=== PATIENT | female | born 1945 | race Caucasian/White ===

== ENCOUNTER 2023-12-20 12:32 | Outpatient (REF) | payer OTHER, SELFPAY ==
--- NOTE | ~2023-12-20 | XR_ITS ---
EXAMINATION: XR LUMBOSACRAL SPINE WITH OBLIQUES CLINICAL INFORMATION: Radiculopathy. COMPARISON: MR lumbar spine 08/20/2022. TECHNIQUE: AP and lateral views of the lumbar spine with lateral views obtained in a neutral, flexion and extension positioning. FINDINGS: Mild left apical curvature of the lumbar spine. Stable grade 1 anterolisthesis of L4 on L5. No significant change in the alignment on the flexion and extension views. No evidence of acute compression deformity. Severe intervertebral disc height loss with vacuum disc phenomena at L3-L4. Otherwise, moderate intervertebral disc height loss at additional levels. Moderate facet arthropathy from L4 through S1. Small to moderate multilevel anterior osteophytes. Suspect some degree of neural foraminal encroachment from L3 through S1, more noticeable at L5-S1. Right upper quadrant surgical clips. No significant paraspinal soft tissue abnormality. XR/XR lumbar spine 4V min IMPRESSION: 1. No acute compression deformity. 2. Stable grade 1 anterolisthesis of L4 on L5 without evidence of instability on flexion and extension views. 3. Moderate to severe lumbar spondylosis.
== END 2023-12-20 12:33 | disposition home or self-care (01) ==
LOC: HO.HOSX 12:32
PROVIDERS: Referring Provider Physician Assistant Medical; Visit Provider Physician Assistant
DX: M54.16 Radiculopathy, lumbar region (principal); M54.50 Low back pain, unspecified
CPT/HCPCS: 72110

== ENCOUNTER 2023-12-20 12:32 | Outpatient (AMB) | payer OTHER, SELFPAY ==
--- NOTE | 2023-12-20 13:05 | A.SPINEOV_ITS ---
Intake Intake Visit Reasons: radiculopathy, lumbar region Assessment & Plan Assessment & Plan (1) Lumbago: Code(s): M54.50 - Low back pain, unspecified Plan Dear SHERRON Gómez, Thank you for referring Maricel to our office today. She is a pleasant 78-year-old female who comes in today with a chief complaint of low back pain & numbness in her bilateral lower extremities, worse on the left. She states that she had spine surgery 7 years ago (L sided L4-[address] Willard) to relieve a left-sided lumbar radiculopathy. She states that after the surgery she lost feeling in her left lateral lower leg, and reports that this feeling never returned. As the years progressed her loss of sensation began to encompass all of her bilateral toes as well. She states that her primary care physician has ruled out peripheral neuropathy, however she states she never had an EMG completed. She describes her low back pain as the worse symptoms she has. She states she feels she is in constant low-grade pain. She reports 100% relief of her symptoms with lying down flat. She states that sitting for prolonged periods of time and prolonged activity exacerbate her pain. She does not report any issues with walking, and states that bending over does not help to alleviate her symptoms. She reports that she is tried several interventions for her low back pain including physical therapy, healthcare network consultant, several cortisone injections, and acupuncture. Of note the patient is still extremely active, engaging in weekly line dancing, completing weight-bearing exercise regularly, and achieving all of her ADLs. PMH: History of L4-5 left-sided microdiskectomy. Cataracts, basal cell carcinoma (face), Cholecystectomy, unspecified lumbar spine microdiskectomy, osteoarthritis, high blood pressure, asthma, HSV, depression, anxiety, osteoporosis, asthma, fibromyalgia. Social hx: Patient does not smoke, reports no substance use. She does have 3-4 drinks per week. Medications: Duloxetine, lorazepam, Lyrica, Hydroquinone, valacyclovir, metronidazole, betamethasone, albuterol, alendronate, losartan. Allergies: Sulfa, oxycodone. Physical exam: The patient has 5/5 strength in her upper and lower extremities. She has some sensational deficits which she describes as numbness over the lateral aspect of her left lower leg beginning several inches below her knee and extending all the way down her lateral foot on the left side. She also reports no feeling in her bilateral toes. The rest of her sensation is intact. Her reflexes are 2+ intact. She is able to ambulate well and rises from a seated position without difficulty. (-) Giles's, (-) clonus, (-) straight leg raise bilaterally, (-) Abdias's. Imaging review: MRI of the lumbar spine completed at [facility] shows mild posterior disc bulge at L2-3, L3-4, and L4-5. These disc bulges are only causing what I would describe as mild-moderate central canal stenosis. No significant foraminal stenosis can be observed. There is a grade 1 spondylolisthesis at L4- 5, and evidence of a prior surgery at this level. Impression: Maricel is a pleasant 78-year-old female comes in today with a primary chief complaint of chronic low back pain, and a secondary complaint of longstanding bilateral lower extremity sensational changes. In regards to her low back pain, she does have a grade 1 spondylolisthesis at L4-5, but does not have any significant foraminal stenosis or central canal stenosis, and does not present with a history that is consistent with spinal stenosis. Her disc bulging noted from L2-L5 is not significant/severe enough to warrant a surgical intervention, as there is still good flow of cerebrospinal fluid at this level and there is no significant foraminal stenosis. I recommended that the patient continue to follow-up with [facility] and consider a possible spinal cord stimulator if her pain continues to bother her on a daily basis. I also encouraged her that her functional status is still very good, and she should consider refraining from further interventions until her pain begins to impact her ADLs / regular meaningful activities significantly. Lastly, I would also recommend a nerve conduction study/EMG if she has not had one already, if she continues to voice complaints regarding her lower extremity numbness. *At the end of this visit I had her complete a set of standing lumbar spine x- rays (AP/Lateral/Flexion/Extension) during this visit which did show minor / slight movement of the grade 1 spondylolisthesis at L4-5. I will review this case with Dr. Grier to see if he has any concerns regarding this movement. Thank you for allowing us to care for your patient. The total time spent with this visit with this patient was 60 minutes reviewing history, physical exam, MRI lumbar spine & XR lumbar spine imaging review, and implementation of treatment plan or further diagnostic testing Christopher Grier MD,PhD [facility] Orders: Orders XR lumbar spine 4V min Today M54.16 - Radiculopathy, lumbar region Coding Level of Care Code New Pt Level 5 (34131) Diagnoses Lumbago M54.50
== END 2023-12-20 14:34 | disposition home or self-care (01) ==
PROVIDERS: Referring Provider Physician Assistant Medical; Visit Provider Physician Assistant
DX: M54.50 Low back pain, unspecified (principal)
CPT/HCPCS: 99205

== ENCOUNTER 2024-01-08 10:39 | Outpatient (AMB) | payer OTHER, SELFPAY ==
--- NOTE | 2024-01-08 11:21 | A.SPINEOV_ITS ---
Intake Visit Reasons: discuss sx and meet Intake Note: Ms. Joy is here today to discuss surgical options and meet Dr. Grier. Crop Grain Or Livestock Farm Manager Required: No Allergies Sulfa (Sulfonamide Antibiotics) Allergy (Severe, Verified 01/22/24 10:54) Anaphylaxis oxycodone Allergy (Intermediate, Verified 01/22/24 10:54) Wheezing Assessment & Plan Assessment & Plan (1) Back pain of thoracolumbar region: Code(s): M54.50 - Low back pain, unspecified; M54.6 - Pain in thoracic spine Category: Medical (2) Lumbar radiculopathy: Code(s): M54.16 - Radiculopathy, lumbar region Category: Medical Plan Maricel is a pleasant 78-year-old female who came in today as a follow-up visit to review her current imaging and compare it to her preoperative imaging. She was evaluated by this flex o writer operator alongside Dr. Grier, so he could openly discuss possible surgical interventions with her. We discussed her current symptoms, which remain the same; a left-sided shooting radiculopathy. It seems as though her symptoms are predominantly in a left-sided S1 distribution when we discussed her condition today. Upon review of her imaging it does appear that she has some left-sided S1 nerve impingement that is more chronic in nature and has been present since before her L4-5 laminectomy that was completed by Dr. Lo several years ago. Because this has been somewhat longstanding issue we suggested she has a diagnostic left-sided S1 nerve block completed by our pain management colleagues. She was agreeable to this, and we will be following up with them in regards. I will send out a referral. Total amount of time spent in this visit was 20 minutes in discussion of symptoms, MRI imaging results and subsequent plan of care Christopher Grier MD,PhD [facility] Orders: Referrals Pain Management Referral M54.16 - Radiculopathy, lumbar region Coding Level of Care Code New Pt Level 4 (65498) Diagnoses Back pain of thoracolumbar region M54.50; M54.6 Lumbar radiculopathy M54.16
== END 2024-01-08 12:04 | disposition home or self-care (01) ==
PROVIDERS: Visit Provider Physician Assistant
DX: M54.50 Low back pain, unspecified (principal); M54.6 Pain in thoracic spine; M54.16 Radiculopathy, lumbar region
CPT/HCPCS: 99213

== ENCOUNTER → 2024-01-08 10:39 | Outpatient (BNVA) | payer OTHER, SELFPAY | PROVIDERS: Visit Provider Physician Assistant ==

== ENCOUNTER 2024-01-22 10:44 | Outpatient (AMB) | payer OTHER, SELFPAY ==
--- NOTE | 2024-01-22 10:49 | MHC.OFFVIS ---
Intake Vital Signs 01/22/24 10:51 Height 5 ft 2.75 in Weight 150 lb BMI 26.8 BP 160/82 H Blood Pressure Location Lt brachial Position Sitting Respiration 12 Pulse 84 Pulse Source Pulse Oximeter Pulse Oximetry (%) 98 Oxygen Delivery Method Room Air Intake Visit Reasons: Pain in thoracic spine/low back pain/LVM Allergies Sulfa (Sulfonamide Antibiotics) Allergy (Severe, Verified 01/22/24 10:54) Anaphylaxis oxycodone Allergy (Intermediate, Verified 01/22/24 10:54) Wheezing Medication List - Last Reconciled 01/22/24 by Liz Contreras LPN fexofenadine (Marisol Allergy) 180 mg PO DAILY hydrochlorothiazide 12.5 mg PO DAILY losartan 100 mg PO DAILY HPI Pain in thoracic spine/low back pain/LVM HPI Details 78-year-old female who presents today to the office for an evaluation of pain in the thoracic spine and low back pain. She had a left sided L4-[address] Willard about seven years ago to relieve a left-sided lumbar radiculopathy. The patient reports low back pain and numbness in her bilateral lower extremities, worse on the left side. She also reports occasional radiating pain down to the hip and knee. Her primary care physician referred her for EMG studies at [facility] on 02/11/2024. Her pain alleviates when lying down. She states that sitting for prolonged periods of time and prolonged activity exacerbate her pain. She tried several interventions for her low back pain, including physical therapy, day care attendant, several cortisone injections, and acupuncture. She recently had an MRI scan and an x-ray. [facility] Medical History (Updated 01/28/24 @ 11:40 by Reynaldo Teresa MD) Fibromyalgia Anxiety Depression HSV (herpes simplex virus) infection Asthma High blood pressure Osteoarthritis Basal cell carcinoma Cataract Surgical History (Updated 01/22/24 @ 06:23 by Evon Mejía) Hx of cholecystectomy History of microdiscectomy Review of Systems Const All systems reviewed & are unremarkable except as noted in HPI and below Physical Exam Vital Signs: Last Vital Signs Pulse 84 01/22/24 10:51 Resp 12 01/22/24 10:51 BP 160/82 H 01/22/24 10:51 Pulse Ox 98 01/22/24 10:51 Oxygen Delivery Method Room Air 01/22/24 10:51 BMI result Body Mass Index 26.8 General: Appears afebrile. Alert and oriented. Mood and affect appropriate. Follows and participates in conversation appropriately. Respiratory effort is unlabored. Able to transition from sit to stand unassisted. Ambulates with bilaterally normal heel strike and toe off. Results Reviewed Results Reviewed: 12/20/23: XR LUMBOSACRAL SPINE WITH OBLIQUES FINDINGS: Mild left apical curvature of the lumbar spine. Stable grade 1 anterolisthesis of L4 on L5. No significant change in the alignment on the flexion and extension views. No evidence of acute compression deformity. Severe intervertebral disc height loss with vacuum disc phenomena at L3-L4. Otherwise, moderate intervertebral disc height loss at additional levels. Moderate facet arthropathy from L4 through S1. Small to moderate multilevel anterior osteophytes. Suspect some degree of neural foraminal encroachment from L3 through S1, more noticeable at L5-S1. Right upper quadrant surgical clips. No significant paraspinal soft tissue abnormality. IMPRESSION: 1. No acute compression deformity. 2. Stable grade 1 anterolisthesis of L4 on L5 without evidence of instability on flexion and extension views. 3. Moderate to severe lumbar spondylosis. Review of MRI shows nonspecific scar tissue at the L5-S1 level compressing the S1 nerve root. Assessment & Plan Assessment & Plan (1) Lumbar radiculopathy: Code(s): M54.16 - Radiculopathy, lumbar region (2) Post laminectomy syndrome: Code(s): M96.1 - Postlaminectomy syndrome, not elsewhere classified Plan Discussed diagnostic injections vs. spinal cord stimulation as possible treatment options. We will schedule her for a Left L5-S1 selective nerve root block at the site of the epidural scar tissue compressing on her left S1 nerve root. She has an EMG study on the , so we will tentatively plan for the week after that. Discussed the risks and benefits of the procedure with the patient in detail. All questions were answered. The patient is on board with the plan. Justification for interventional therapy: ? Patient with average pain > 6/10 ? Patient has exhausted conservative therapy ? Patient unable to tolerate physical therapy due to pain Scribed for Dr. Teresa by Rashel Lugo, medical office rep, on 01/22/2024. I, Dr. Teresa, have personally reviewed and agree with the information entered by the scribe. Coding Level of Care Code New Pt Level 4 (70545) Diagnoses Lumbar radiculopathy M54.16 Post laminectomy syndrome M96.1
[2024-01-22 10:51] VITALS: BP 160/82; PULSE 84; RESP 12; O2SAT 98; BMI 26.8
== END 2024-01-22 11:30 | disposition home or self-care (01) ==
LOC: HO.PMC 10:44
PROVIDERS: PCP Internal Medicine; Visit Provider Internal Medicine
DX: M54.16 Radiculopathy, lumbar region (principal); M96.1 Postlaminectomy syndrome, not elsewhere classified
CPT/HCPCS: 99204

== ENCOUNTER → 2024-01-22 10:44 | Outpatient (BNVA) | payer OTHER, SELFPAY | PROVIDERS: PCP Internal Medicine; Visit Provider Internal Medicine ==

== ENCOUNTER 2024-05-14 06:13 | Outpatient (REF) | payer OTHER, SELFPAY ==
--- NOTE | ~2024-05-14 | FL_ITS ---
EXAMINATION: XR FLUOROSCOPY WITH IMAGES CLINICAL INFORMATION: L5-S1 nerve block. COMPARISON: None available. TECHNIQUE: Fluoroscopy Supervised By: Dr. Teresa. Fluoroscopy Time: 0.2 min. Cumulative Dose: 5.45 mGy. DAP: 0.396 Gycm2. Images: 3. FINDINGS: Intraoperative fluoroscopy and spot films were performed during a procedure in the OR. A needle is seen at the L5-S1 level on the left with contrast around the tip. Contrast appears to be in the epidural space. Please correlate with Dr. Teresa' report for complete details. FL/FL guidance in treatment room IMPRESSION: Intraoperative fluoroscopy and spot films were obtained. Please see Dr. Teresa' report for complete details.
== END 2024-05-14 06:14 | disposition home or self-care (01) ==
LOC: CF 06:13
PROVIDERS: Visit Provider Internal Medicine
DX: M54.16 Radiculopathy, lumbar region (principal)
CPT/HCPCS: 64483; Q9967

== ENCOUNTER 2024-05-14 11:14 | Outpatient (AMB) | payer OTHER, SELFPAY ==
--- NOTE | 2024-05-14 11:19 | MHC.OFFVIS ---
Vital Signs 05/14/24 12:43 05/14/24 12:44 BP 170/83 H 160/92 H Blood Pressure Location Rt brachial Rt brachial Position Sitting Sitting Respiration 14 14 Pulse 85 84 Pulse Source Pulse Oximeter Pulse Oximeter Pulse Oximetry (%) 98 97 Oxygen Delivery Method Room Air Room Air Intake Visit Reasons: Left L5-S1 selective nerve root block Allergies Sulfa (Sulfonamide Antibiotics) Allergy (Severe, Verified 01/22/24 10:54) Anaphylaxis oxycodone Allergy (Intermediate, Verified 01/22/24 10:54) Wheezing HPI HPI Left L5-S1 selective nerve root block: Details: Patient presents for scheduled procedure. Denies any recent cough, cold, infection, fever or other significant changes in medical history since last office visit. [facility] Medical History (Updated 01/28/24 @ 11:40 by Reynaldo Teresa MD) Fibromyalgia Anxiety Depression HSV (herpes simplex virus) infection Asthma High blood pressure Osteoarthritis Basal cell carcinoma Cataract Surgical History (Updated 01/22/24 @ 06:23 by Evon Mejía) Hx of cholecystectomy History of microdiscectomy Physical Exam Vital Signs: Last Vital Signs Pulse 84 05/14/24 12:44 Resp 14 05/14/24 12:44 BP 160/92 H 05/14/24 12:44 Pulse Ox 97 05/14/24 12:44 Oxygen Delivery Method Room Air 05/14/24 12:44 Office Procedures Details: Selective nerve root block, Left L5 After obtaining written consent, pre-procedure blood pressure and heart rate were stable and recorded in the nursing record. The patient was placed in the prone position on the fluoroscopy table. The lumbosacral area was prepped with chloraprep, allowed to dry and draped in sterile fashion. Using fluoroscopy, the skin overlying our target was anesthetized with 0.5% lidocaine. A 22 gauge 3.5 inch spinal needle was advanced to the safe triangle in the upper pole of the left L5 foramen. No paresthesias were elicited with needle placement and aspiration was negative for blood and CSF. Correct needle position was confirmed with approximately 1 ml contrast dye (Omnipaque 180 mg/ml) injected under real-time fluoroscopy. No evidence of vascular or intrathecal uptake was seen and there was both epidural and peripheral spread of the contrast agent. 1 ml containing 1.5% lidocaine was slowly injected. The needle was flushed and removed. The skin was cleansed and a sterile bandages were applied. The patient tolerated the procedure well and no complications were encountered. Following the procedure the patient's vital signs were stable. The patient was discharged home in good condition with post-procedural instructions. Time Out: Immediately prior to the procedure, the following was verbally confirmed that there is a signed consent form and that the correct patient, planned procedure, site and side are consistent with documentation and that necessary equipment and/or blood products are available prior to the start of the case. Complications: none EBL: <5 cc 41736 - Lumbar/Sacral Procedure code (CPT) selection complete Assessment & Plan Assessment & Plan (1) Lumbar radiculopathy: Code(s): M54.16 - Radiculopathy, lumbar region Category: Medical Plan Patient is status post diagnostic left L5-S1 selective nerve root block. Patient tolerated procedure well and was discharged home in stable condition with discharge instructions. All questions were answered. We will follow-up via telephone or in clinic to assess response to therapy. A follow-up appointment was made during today's visit. Coding Level of Care Code Procedure Only Diagnoses Lumbar radiculopathy M54.16 CPT Codes Transforaminal Epidural Steroid Inj - TESI 3: 01476 - Lumbar/Sacral ([id number])
[2024-05-14 12:43] VITALS: BP 170/83; PULSE 85; RESP 14; O2SAT 98
[2024-05-14 12:44] VITALS: BP 160/92; PULSE 84; RESP 14; O2SAT 97
== END 2024-05-14 12:00 | disposition home or self-care (01) ==
LOC: HO.PMCPRC 11:14
PROVIDERS: PCP Internal Medicine; Visit Provider Internal Medicine
DX: M54.16 Radiculopathy, lumbar region (principal)
CPT/HCPCS: 64483

== ENCOUNTER 2024-05-20 10:25 | Outpatient (AMB) | payer OTHER, SELFPAY ==
--- NOTE | 2024-05-20 10:41 | MHC.OFFVIS ---
Vital Signs 05/20/24 10:49 Height 5 ft 2.75 in BP 143/86 H Blood Pressure Location Lt brachial Position Sitting Respiration 14 Pulse 120 H Pulse Source Pulse Oximeter Pulse Oximetry (%) 96 Oxygen Delivery Method Room Air Intake Visit Reasons: s/p left L5-S1 SNRB Allergies Sulfa (Sulfonamide Antibiotics) Allergy (Severe, Verified 05/20/24 10:49) Anaphylaxis oxycodone Allergy (Intermediate, Verified 05/20/24 10:49) Wheezing Medication List - Last Reconciled 05/20/24 by Liz Contreras LPN fexofenadine (Marisol Allergy) 180 mg PO DAILY hydrochlorothiazide 12.5 mg PO DAILY losartan 100 mg PO DAILY HPI HPI s/p left L5-S1 SNRB: Details: 78-year-old female who presents to the office for status post left L5-S1 selective nerve root block injection. The patient reports no significant relief following the procedure. She states she still has some pain and stiffness in the back. The pain radiates down to the leg at times when she walks. She reports it hurt a lot yesterday and the day before. She did massaging to help relieve the pain and stiffness. Past procedures: 05/14/24: Left L5 selective nerve root block: no relief [facility] Medical History (Updated 05/20/24 @ 11:36 by Reynaldo Teresa MD) Fibromyalgia Anxiety Depression HSV (herpes simplex virus) infection Asthma High blood pressure Osteoarthritis Basal cell carcinoma Cataract Surgical History (Updated 01/22/24 @ 06:23 by Evon Mejía) Hx of cholecystectomy History of microdiscectomy Review of Systems Const All systems reviewed & are unremarkable except as noted in HPI and below Physical Exam Vital Signs: Last Vital Signs Pulse 120 H 05/20/24 10:49 Resp 14 05/20/24 10:49 BP 143/86 H 05/20/24 10:49 Pulse Ox 96 05/20/24 10:49 Oxygen Delivery Method Room Air 05/20/24 10:49 General: Appears afebrile. Alert and oriented. Mood and affect appropriate. Follows and participates in conversation appropriately. Respiratory effort is unlabored. Able to transition from sit to stand unassisted. Results Reviewed Results Reviewed: No imaging is available for review Assessment & Plan Assessment & Plan (1) Post laminectomy syndrome: Code(s): M96.1 - Postlaminectomy syndrome, not elsewhere classified Category: Medical (2) Left sacral radiculopathy: Code(s): M54.18 - Radiculopathy, sacral and sacrococcygeal region Category: Medical Plan We will schedule for a left diagnostic S1 nerve root block next. We will assess response to the S1 nerve root block and see if that provides us with a surgical target. In case of no response to both L5 and S1 diagnostic nerve root blocks, we might have to consider neuromodulation instead of surgical intervention. Discussed the risks and benefits of the procedure with the patient in detail. All questions were answered. The patient is on board with the plan. Scribed for Dr. Teresa by Evon Mejía medical officer psychiatry, on 05/20/2024. I, Dr. Teresa, have personally reviewed and agree with the information entered by the scribe. Coding Level of Care Code Est Pt Level 3 (90055) Diagnoses Post laminectomy syndrome M96.1 Left sacral radiculopathy M54.18
[2024-05-20 10:49] VITALS: BP 143/86; PULSE 120; RESP 14; O2SAT 96
== END 2024-05-20 11:02 | disposition home or self-care (01) ==
PROVIDERS: PCP Internal Medicine; Visit Provider Internal Medicine
DX: M96.1 Postlaminectomy syndrome, not elsewhere classified (principal); M54.18 Radiculopathy, sacral and sacrococcygeal region
CPT/HCPCS: 99213

== ENCOUNTER → 2024-05-20 10:25 | Outpatient (BNVA) | payer OTHER, SELFPAY | PROVIDERS: PCP Internal Medicine; Visit Provider Internal Medicine ==

== ENCOUNTER 2024-06-04 06:24 | Outpatient (REF) | payer OTHER, SELFPAY ==
--- NOTE | ~2024-06-04 | FL_ITS ---
EXAMINATION: XR FLUOROSCOPY WITH IMAGES CLINICAL INFORMATION: Lumbar radiculopathy. COMPARISON: None available. TECHNIQUE: Fluoroscopy Supervised By: Dr. Teresa. Fluoroscopy Time: 0.2 min. Cumulative Dose: 3.58 mGy. DAP: 0.0270 Gycm2. Images: 4. FINDINGS: Intraoperative fluoroscopy and spot films were performed during a procedure in the OR. Epidural needles appear to be present at the S1 and L5 levels. Please correlate with Dr. Teresa' report for complete details. FL/FL guidance in treatment room IMPRESSION: Intraoperative fluoroscopy and spot films were obtained. Please see Dr. Teresa' report for complete details.
== END 2024-06-04 06:25 | disposition home or self-care (01) ==
LOC: CF 06:24
PROVIDERS: Visit Provider Internal Medicine
DX: M54.16 Radiculopathy, lumbar region (principal); M54.18 Radiculopathy, sacral and sacrococcygeal region
CPT/HCPCS: 64483; J2795; Q9967

== ENCOUNTER 2024-06-04 12:53 | Outpatient (AMB) | payer OTHER, SELFPAY ==
[2024-06-04 12:59] VITALS: BP 165/76; PULSE 79; RESP 16; O2SAT 98; BMI 26.8
--- NOTE | 2024-06-04 12:59 | A.OFFVIS_ITS ---
Vital Signs 06/04/24 12:59 06/04/24 13:46 Height 5 ft 2.75 in Weight 150 lb BMI 26.8 BP 165/76 H 161/82 H Blood Pressure Location Rt brachial Lt brachial Position Sitting Sitting Respiration 16 16 Pulse 79 80 Pulse Source Pulse Oximeter Pulse Oximeter Pulse Oximetry (%) 98 98 Oxygen Delivery Method Room Air Room Air Comment Pre-Op Post-op Intake Visit Reasons: Left Dx S1 selective nerve RB Allergies Sulfa (Sulfonamide Antibiotics) Allergy (Severe, Verified 06/04/24 13:00) Anaphylaxis oxycodone Allergy (Intermediate, Verified 06/04/24 13:00) Wheezing HPI HPI Left Dx S1 selective nerve RB: Details: Patient presents for scheduled procedure. Denies any recent cough, cold, infection, fever or other significant changes in medical history since last office visit. [facility] Medical History (Updated 05/20/24 @ 11:36 by Reynaldo Teresa MD) Fibromyalgia Anxiety Depression HSV (herpes simplex virus) infection Asthma High blood pressure Osteoarthritis Basal cell carcinoma Cataract Surgical History (Updated 01/22/24 @ 06:23 by Evon Mejía) Hx of cholecystectomy History of microdiscectomy Physical Exam Vital Signs: Last Vital Signs Pulse 80 06/04/24 13:46 Resp 16 06/04/24 13:46 BP 161/82 H 06/04/24 13:46 Pulse Ox 98 06/04/24 13:46 Oxygen Delivery Method Room Air 06/04/24 13:46 BMI result Body Mass Index 26.8 Office Procedures Details: Diagnostic selective nerve root block, left S1 After obtaining written consent, pre-procedure blood pressure and heart rate were stable and recorded in the nursing record. The patient was placed in the prone position on the fluoroscopy table. The lumbosacral area was prepped with chloraprep, allowed to dry and draped in sterile fashion. Using fluoroscopy, the skin overlying our target was anesthetized with 0.5% lidocaine. A 22 gauge 3.5 inch spinal needle was advanced through the S1 foramen. No paresthesias were elicited with needle placement and aspiration was negative for blood and CSF. Correct needle position was confirmed with approximately 1 ml contrast dye (Omnipaque 180 mg/ml) injected under real- time fluoroscopy. No evidence of vascular or intrathecal uptake was seen and there was both epidural and peripheral spread of the contrast agent. 1 ml containing 0.5% lidocaine and 0.5% ropivacaine equal mix was slowly injected. The needle was removed. The skin was cleansed and a sterile bandages were applied. The patient tolerated the procedure well and no complications were encountered. Following the procedure the patient's vital signs were stable. The patient was discharged home in good condition with post-procedural instructions. Time Out: Immediately prior to the procedure, the following was verbally confirmed that there is a signed consent form and that the correct patient, planned procedure, site and side are consistent with documentation and that necessary equipment and/or blood products are available prior to the start of the case. Complications: none EBL: <5 cc 98206 - Lumbar/Sacral Procedure code (CPT) selection complete Assessment & Plan Assessment & Plan (1) Left sacral radiculopathy: Code(s): M54.18 - Radiculopathy, sacral and sacrococcygeal region Category: Medical Plan Patient is status post diagnostic left S1 nerve root block. Patient tolerated procedure well and was discharged home in stable condition with discharge instructions. All questions were answered. We will follow-up via telephone or in clinic to assess response to therapy. A follow-up appointment was made during today's visit. Orders: Orders FL guidance in treatment room Today M54.16 - Radiculopathy, lumbar region Coding Level of Care Code Procedure Only Diagnoses Left sacral radiculopathy M54.18 CPT Codes Transforaminal Epidural Steroid Inj - TESI 3: 11729 - Lumbar/Sacral ([id number])
[2024-06-04 13:46] VITALS: BP 161/82; PULSE 80; RESP 16; O2SAT 98
== END 2024-06-04 13:47 | disposition home or self-care (01) ==
LOC: HO.PMCPRC 12:53
PROVIDERS: PCP Internal Medicine; Visit Provider Internal Medicine
DX: M54.18 Radiculopathy, sacral and sacrococcygeal region (principal)
CPT/HCPCS: 64483

== ENCOUNTER 2024-06-11 10:46 | Outpatient (AMB) | payer OTHER, SELFPAY ==
--- NOTE | 2024-06-11 10:49 | MHC.OFFVIS ---
Vital Signs 06/11/24 10:50 Height 5 ft 3 in Weight 151 lb BMI 26.7 BP 141/65 H Blood Pressure Location Lt brachial Position Sitting Pulse 89 Pulse Source Pulse Oximeter Pulse Oximetry (%) 95 Oxygen Delivery Method Room Air Intake Visit Reasons: s/p Left S1 Dx SNRB Allergies Sulfa (Sulfonamide Antibiotics) Allergy (Severe, Verified 06/11/24 10:52) Anaphylaxis oxycodone Allergy (Intermediate, Verified 06/11/24 10:52) Wheezing Medication List - Last Reconciled 06/11/24 by Keisha Wick fexofenadine (Marisol Allergy) 180 mg PO DAILY hydrochlorothiazide 12.5 mg PO DAILY losartan 100 mg PO DAILY valacyclovir mg PO HPI HPI s/p Left S1 Dx SNRB: Details: Maricel presents for follow-up after diagnostic left selective S1 nerve root block. She reports numbness the 1st day after the injection and then relief of pain for 1 day before her symptoms returned. This was different from the L5 selective nerve root block that we did which did not have any effect on her symptoms. She is interested in discussing available treatment options for her symptoms. [facility] Medical History (Updated 05/20/24 @ 11:36 by Reynaldo Teresa MD) Fibromyalgia Anxiety Depression HSV (herpes simplex virus) infection Asthma High blood pressure Osteoarthritis Basal cell carcinoma Cataract Surgical History (Updated 01/22/24 @ 06:23 by Evon Mejía) Hx of cholecystectomy History of microdiscectomy Physical Exam Vital Signs: Last Vital Signs Pulse 89 06/11/24 10:50 BP 141/65 H 06/11/24 10:50 Pulse Ox 95 06/11/24 10:50 Oxygen Delivery Method Room Air 06/11/24 10:50 BMI result Body Mass Index 26.7 On exam today: Appears afebrile. Alert and oriented. Mood and affect appropriate. Follows and participates in conversation appropriately. Respiratory effort is unlabored. Able to transition from sit to stand unassisted. Ambulates with bilaterally normal heel strike and toe off. Able to stand and walk on toes and heels. Assessment & Plan Assessment & Plan (1) Post laminectomy syndrome: Code(s): M96.1 - Postlaminectomy syndrome, not elsewhere classified Category: Medical (2) Left sacral radiculopathy: Code(s): M54.18 - Radiculopathy, sacral and sacrococcygeal region Category: Medical Plan Maricel had a positive diagnostic response to a diagnostic left S1 selective nerve root block. I discussed both neuromodulation as well as surgical treatment options available to her for this issue. She is hesitant to go for surgery right away. We discussed spinal cord stimulation as a potential 1st step to see if that might resolve her symptoms. If an SCS trial is not helpful, we can consider revisiting surgical excision of the potential scar tissue at her S1 nerve root with Dr. Grier. If that is not helpful, we can consider a S1 DRG stimulator placement. I discussed the risks and potential benefits of all these different modalities. She is interested in pursuing an SCS trial to begin with. I will send her for psychology clearance through [employer] and see her back for a trial with a [employer] device once she is cleared. Coding Level of Care Code Est Pt Level 3 (80457) Diagnoses Post laminectomy syndrome M96.1 Left sacral radiculopathy M54.18
[2024-06-11 10:50] VITALS: BP 141/65; PULSE 89; O2SAT 95; BMI 26.7
== END 2024-06-11 11:50 | disposition home or self-care (01) ==
PROVIDERS: PCP Internal Medicine; Visit Provider Internal Medicine
DX: M96.1 Postlaminectomy syndrome, not elsewhere classified (principal); M54.18 Radiculopathy, sacral and sacrococcygeal region
CPT/HCPCS: 99213

== ENCOUNTER → 2024-06-11 10:46 | Outpatient (BNVA) | payer OTHER, SELFPAY | PROVIDERS: PCP Internal Medicine; Visit Provider Internal Medicine ==

== ENCOUNTER 2024-06-29 10:16 | Outpatient (AMB) | payer OTHER, SELFPAY ==
--- NOTE | 2024-06-29 10:22 | HO.SPINEOV ---
Intake Visit Reasons: Follow up after pain management Intake Note: Ms. Joy is here today to F/u after pain management. 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 She initially had a left-sided L5 diagnostic nerve block completed which provided no pain relief per the patient's report. After this, she had a left-sided S1 diagnostic nerve block completed, which provided 75% relief for about half a day. She reports that the pressure/numbness in her left leg/thigh was not relieved at all. She reports she also discussed the possibility of a spinal cord stimulator with our pain management colleagues, but does not feel as though she would like to pursue this option at this time. I am not entirely convinced that Maricel is a good candidate for a left-sided S1 foraminotomy, which is the type of procedure that Dr. Grier typically would offer someone with an imaging/history similar to Maricel. Nevertheless, I will discuss her experience with pain management in the possibility for the surgery with Dr. Grier. I will reach back out to the patient after. Christopher Grier MD,PhD [facility] Coding Level of Care Code Global (59632) Diagnoses Lumbar radiculopathy M54.16
== END 2024-06-29 11:50 | disposition home or self-care (01) ==
PROVIDERS: PCP Internal Medicine; Visit Provider Physician Assistant
DX: M54.16 Radiculopathy, lumbar region (principal)
CPT/HCPCS: 99213

== ENCOUNTER → 2024-06-29 10:16 | Outpatient (BNVA) | payer OTHER, SELFPAY | PROVIDERS: PCP Internal Medicine; Visit Provider Physician Assistant ==